=== PATIENT | male | born 1970 | race African-American/Black ===

== ENCOUNTER 2017-06-29 11:30 | Emergency (ER) | payer SELFPAY ==
[2017-06-29] MEDS ORDERED: Ondansetron ODT 4 MG TAB ONE (11:46)
--- NOTE | 2017-06-29 12:23 | RAD ---
2 AP VIEWS OF CHEST: Date: 06/29/17 INDICATION: History of chest pain. IMPRESSION: No acute cardiopulmonary abnormality. The examination is not appreciably changed from comparison date d 06/15/12. POS: [facility]
[2017-06-29 12:34] LABS: #Lymphocytes 0.6 thou/uL (1.20-3.40); #Monocytes 0.4 thou/uL (0.11-0.59); #Neutrophils 3.8 thou/uL (1.40-6.50); %Basophils 0.2 % (0.0-1.0); %Eosinophils 0.3 % (0.0-10.0); %Monocytes 8.2 % (0.0-10.0); %Neutrophils 79.4 % (42.0-75.0); Hemoglobin 14.6 g/dL (14.0-18.0); Mean Corpuscular Hemoglobin 26.5 pg (27.0-31.0); Mean Corpuscular Volume 78.1 fl (80.0-94.0); Mean Platelet Volume 6.9 fL (7.4-10.4); Platelet Count 252 thou/uL (130-400); RBC Distribution Width 12.3 % (11.5-14.5); White Blood Cell (WBC) Count 4.7 thou/uL (4.8-10.8)
[2017-06-29 12:52] LABS: ALT (SGPT) 19 U/L (8-55); AST (SGOT) 28 U/L (5-34); Albumin 4.3 g/dL (3.5-5.0); Alkaline Phosphatase 46 U/L (40-150); Anion Gap 14 mmol/L (10-20); BUN (Urea Nitrogen) 10 mg/dL (8.9-20.6); Bilirubin, Total 1.2 mg/dL (0.2-1.2); Calc. Creatinine Clearance 0 mL/min (70-130); Calcium 9.5 mg/dL (7.8-10.44); Carbon Dioxide 24 mmol/L (22-29); Chloride 100 mmol/L (98-107); Estimated GFR-MDRD 82; Globulin 3.2 g/dL (2.4-3.5); Glucose 93 mg/dL (70-105); Lipase 47 U/L (8-78); Potassium 3.3 mmol/L (3.5-5.1); Protein, Total 7.5 g/dL (6.0-8.3); Sodium 135 mmol/L (136-145)
[2017-06-29 12:54] LABS: CKMB 1.2 ng/mL (0-6.6); Troponin I Less than 0.010 ng/mL (< 0.028)
--- NOTE | 2017-08-08 14:24 | EKG ---
Test Reason : Blood Pressure : / mmHG Vent. Rate : 078 BPM Atrial Rate : 078 BPM P-R Int : 166 ms QRS Dur : 092 ms QT Int : 366 ms P-R-T Axes : 065 056 035 degrees QTc Int : 417 ms Normal sinus rhythm Possible Left atrial enlargement Borderline ECG Confirmed by BRISA MILLER, ALEJANDRA ([id number]), index editor RITA BALLARD ([id number]) on 08/08/2017 2:23:45 PM Referred By: Confirmed By:ALEJANDRA LEDEZMA MD
== END 2017-06-29 14:19 | disposition home or self-care (01) ==
LOC: ERS 11:30
DX: K29.70 Gastritis, unspecified, without bleeding (principal); E87.6 Hypokalemia
CPT/HCPCS: 71045; 80053; 82553; 83690; 84484; 85025; 93005; 96360; 96361; Q0162

== ENCOUNTER 2019-07-14 13:45 | Emergency (ER) | payer OTHER, SELFPAY ==
[2019-07-14] MEDS ORDERED: Nitroglycerin 2% Ointment 1 INCH/1 GM Packet ONE (14:34)
[2019-07-14] MEDS ORDERED: Aspirin Chewable 81 MG TAB ONE (14:34)
--- NOTE | 2019-07-14 14:37 | RAD ---
Chest one view HISTORY: Chest pain. Dyspnea. COMPARISON: 06/29/2017. FINDINGS: Cardiac silhouette and pulmonary vasculature are unremarkable. Mediastinum is midline. Subtle ill-defined opacity projects over the right posterior lung base. Left lung is clear. No eviden ce of pneumothorax. air sampling and monitoring leads overlie the chest. IMPRESSION : Subtle parenchymal opacity/infiltrate at the right posterior lung base. Clinical correlation regardin g other signs and symptoms of right basilar pneumonitis is required.
[2019-07-14 14:40] LABS: #Lymphocytes 0.5 thou/uL (1.20-3.40); #Monocytes 0.4 thou/uL (0.11-0.59); %Basophils 0.3 % (0.0-1.0); %Eosinophils 0.1 % (0.0-10.0); %Lymphocytes 6.4 % (21.0-51.0); %Monocytes 5.4 % (0.0-10.0); %Neutrophils 87.8 % (42.0-75.0); Hemoglobin 14.2 g/dL (14.0-18.0); Mean Corpuscular HGB CONC 34.7 g/dL (32.0-36.0); Mean Corpuscular Volume 80.7 fL (78.0-98.0); Mean Platelet Volume 6.6 fL (7.4-10.4); Platelet Count 252 thou/uL (130-400); RBC Distribution Width 12.6 % (11.5-14.5); Red Blood Cell (RBC) Count 5.06 mill/uL (4.70-6.10); White Blood Cell (WBC) Count 7.9 thou/uL (4.8-10.8)
[2019-07-14 14:58] LABS: ALT (SGPT) 16 U/L (8-55); AST (SGOT) 27 U/L (5-34); Albumin 4.7 g/dL (3.5-5.0); Alkaline Phosphatase 59 U/L (40-110); Anion Gap 19 mmol/L (10-20); BUN (Urea Nitrogen) 16 mg/dL (8.9-20.6); Bilirubin, Total 0.9 mg/dL (0.2-1.2); CK (CPK) 179 U/L (30-200); Calc. Creatinine Clearance 0 mL/min (70-130); Calcium 9.8 mg/dL (7.8-10.44); Carbon Dioxide 21 mmol/L (22-29); Chloride 102 mmol/L (98-107); Estimated GFR-MDRD Greater than 90; Globulin 3.1 g/dL (2.4-3.5); Glucose 93 mg/dL (70-105); Lipase 230 U/L (8-78); Protein, Total 7.8 g/dL (6.0-8.3); Sodium 138 mmol/L (136-145)
[2019-07-15 11:20] LABS: SARS-CoV-2 MS2 Positive; SARS-CoV-2 N Gene Negative; SARS-CoV-2 S Gene Negative; SARS-CoV-2 orf1ab Negative
--- NOTE | 2019-07-24 16:29 | EKG ---
Test Reason : Blood Pressure : / mmHG Vent. Rate : 048 BPM Atrial Rate : 048 BPM P-R Int : 182 ms QRS Dur : 104 ms QT Int : 442 ms P-R-T Axes : 056 084 059 degrees QTc Int : 394 ms Sinus bradycardia Early repolarization Left ventricular hypertrophy Otherwise normal ECG Confirmed by MARSHAL MILLER, TREY ([id number]), editor news RITA BALLARD ([id number]) on 07/24/2019 4:28:43 PM Referred By: Confirmed By:TREY ARAYA MD
== END 2019-07-14 16:05 | disposition home or self-care (01) ==
LOC: ERS 13:45
DX: J18.9 Pneumonia, unspecified organism (principal); Z20.828 Contact with and (suspected) exposure to other viral communicable diseases
CPT/HCPCS: 71045; 80053; 82550; 83690; 84484; 85025; 87635; 93005; U0003

== ENCOUNTER 2019-09-22 18:44 | Emergency (ER) | payer SELFPAY ==
[2019-09-22 20:07] LABS: #Lymphocytes 0.6 thou/uL (1.20-3.40); #Monocytes 0.4 thou/uL (0.11-0.59); #Neutrophils 5.6 thou/uL (1.40-6.50); %Basophils 0.3 % (0.0-1.0); %Eosinophils 0.1 % (0.0-10.0); %Lymphocytes 8.7 % (21.0-51.0); %Monocytes 6.2 % (0.0-10.0); %Neutrophils 84.7 % (42.0-75.0); Hemoglobin 13.8 g/dL (14.0-18.0); Mean Corpuscular HGB CONC 32.7 g/dL (32.0-36.0); Mean Corpuscular Volume 79.5 fL (78.0-98.0); Mean Platelet Volume 6.9 fL (7.4-10.4); Platelet Count 253 thou/uL (130-400); RBC Distribution Width 13.4 % (11.5-14.5); Red Blood Cell (RBC) Count 5.33 mill/uL (4.70-6.10); White Blood Cell (WBC) Count 6.6 thou/uL (4.8-10.8)
[2019-09-22 20:34] LABS: ALT (SGPT) 19 U/L (8-55); AST (SGOT) 37 U/L (5-34); Albumin 4.4 g/dL (3.5-5.0); Alkaline Phosphatase 60 U/L (40-110); Anion Gap 16 mmol/L (10-20); BUN (Urea Nitrogen) 8 mg/dL (8.9-20.6); Bilirubin, Total 0.6 mg/dL (0.2-1.2); Calc. Creatinine Clearance 0 mL/min (70-130); Calcium 9.6 mg/dL (7.8-10.44); Carbon Dioxide 23 mmol/L (22-29); Chloride 98 mmol/L (98-107); Estimated GFR-MDRD Greater than 90; Globulin 3.6 g/dL (2.4-3.5); Glucose 115 mg/dL (70-105); Lipase 75 U/L (8-78); Potassium 3.3 mmol/L (3.5-5.1); Sodium 134 mmol/L (136-145)
[2019-09-22] MEDS ORDERED: Ketorolac Tromethamine 30 MG/ML VIAL ONE (21:14)
--- NOTE | 2019-09-22 21:39 | CT ---
CT ABDOMEN AND PELVIS WITHOUT IV CONTRAST: Indications: Abdominal pain, vomiting, diarrhea. Comparison: None. FINDINGS: Lung bases are clear. Liver, spleen, and pancreas unremarkable. Adrenal glands and kidneys unremarkable. Review of intestinal tract reveals nonspecific fluid filled distention of small bowel. No evidence of bowel obstruction or dilatation. Nonspecific mural thickening of the colon which is poorly evaluated due to non-distention. Aorta caliber. Nonspecific retroperitoneal lymph nodes. No free fluid. Urinary bladder unremarkable. Kidneys unremarkable. IMPRESSION: Nonspecific distention of small bowel loops and nonspecific mural thickening of the colon. Findings c ould be consistent with colitis and/or enteritis. Recommend clinical correlation and follow up as ind icated. POS: [facility]
--- NOTE | 2019-09-22 22:20 | ULT ---
TESTICULAR ULTRASOUND: Date: 09/22/2019 INDICATION: Bilateral testicular pain. FINDINGS: Both testicles show a normal sonographic appearance. No evidence of testicular mass. Color Doppler wi th spectral analysis demonstrates normal and equal blood flow to both testicles. No hydrocele. Epidid ymides appear unremarkable. IMPRESSION: Unremarkable testicular ultrasound. POS: [facility]
[2019-09-22 23:21] LABS: Bacteria/HPF None Seen HPF (None Seen); Bilirubin Negative (Negative); Blood, Urine 2+ (Negative); Clarity Clear (Clear); Glucose, Urine (Dipstick) Normal (Negative); Ketone, Urine Trace mg/dL (Negative); Leukocyte Negative Leu/uL (Negative); Mucous/LPF 1+ LPF (<2+); Nitrite Negative (Negative); Protein, Urine (Dipstick) 50 mg/dL (Neg-Trace); RBC/HPF 0-3 HPF (0-3); Renal Epithelial 0-3 HPF (None Seen); Specific Gravity, Urine 1.031 (1.002-1.036); Squamous Epithelial 0-3 HPF (0-3); Urobilinogen Normal mg/dL (Less than 2); WBC/HPF 0-3 HPF (0-3); pH, Urine 5.5 (5.0-9.0)
== END 2019-09-22 23:52 | disposition home or self-care (01) ==
LOC: ERS 18:44
DX: K52.9 Noninfective gastroenteritis and colitis, unspecified (principal); F17.220 Nicotine dependence, chewing tobacco, uncomplicated
CPT/HCPCS: 36415; 74176; 76870; 80053; 81003; 81015; 83690; 85025; 93976; 96361; 96374; J1885